=== PATIENT | male | born 1970 | race Caucasian/White ===

== ENCOUNTER 2017-09-09 06:41 | Emergency (ER) | payer OTHER ==
[~2017-09-09] VITALS: Ht 177.8 cm; Wt 95.3 kg
== END 2017-09-09 10:21 | disposition home or self-care (01) ==
LOC: ER 06:41
DX: B34.9 Viral infection, unspecified (principal); J30.89 Other allergic rhinitis; J11.1 Influenza due to unidentified influenza virus with other respiratory manifestations